=== PATIENT | female | born 1950 | race African-American/Black ===

== ENCOUNTER 2017-04-06 11:38 | Inpatient (IN) | payer MEDICARE ==
--- NOTE | 2017-04-06 12:07 | ER Document Report ---
ED Medical Screen (RME) - General Chief Complaint: Breathing Difficulty Stated Complaint: COLD SYMPTOMS Time Seen by Provider: 04/06/17 11:58 Notes: This 66-year-old female patient comes emergency room complaining of left substernal pleuritic chest pain with shortness of breath and cough. She reports the symptoms started Friday night. She was seen Friday in the emergency room [facility] diagnosed with pneumonia. She reports she is unable to sleep last night and her family brought her here to be seen. She reports she did get a breathing treatment at the emergency room that may have helped a little. She does have a past history of sarcoidosis. There is no swelling or tenderness in the calf muscles. Brief exam shows an irregular tachycardia, dyspnea, somewhat muffled coughing. I have greeted and performed a rapid initial assessment of this patient. A comprehensive ED assessment and evaluation of the patient, analysis of test results and completion of the medical decision making process will be conducted by additional ED providers. TRAVEL OUTSIDE OF THE [place] IN LAST 30 DAYS: No - Related Data Allergies/Adverse Reactions: No Known Allergies Allergy (Verified 04/06/17 11:52) Past Medical History Renal/ Medical History: Denies: Hx Peritoneal Dialysis Physical Exam - Vital signs Vitals: Temp Pulse Resp BP Pulse Ox 99 F 116 H 93 H 135/65 H 40 L 04/06/17 11:52 04/06/17 11:52 04/06/17 11:52 04/06/17 11:52 04/06/17 11:52 Course - Vital Signs Vital signs: Temp Pulse Resp BP Pulse Ox 99 F 116 H 93 H 135/65 H 40 L 04/06/17 11:52 04/06/17 11:52 04/06/17 11:52 04/06/17 11:52 04/06/17 11:52
[2017-04-06] MEDS ORDERED: NORMAL SALINE 1000 ML 500 ML IV ONE (12:16)
--- NOTE | 2017-04-06 12:23 | ER Document Report ---
ED Respiratory Problem - General Chief Complaint: Breathing Difficulty Stated Complaint: COLD SYMPTOMS Time Seen by Provider: 04/06/17 11:58 Mode of Arrival: Ambulatory Information source: Patient, Relative TRAVEL OUTSIDE OF THE [place] IN LAST 30 DAYS: No - HPI Patient complains to provider of: Chest pain, Short of breath Onset: Other - WORSE 4 AM TODAY Duration: Continuous Initiating Event: Other - WAS TOLD @ ANOTHER E.D. THAT S Quality of pain: Dull, Pressure Severity: Moderate Context: denies: DVT, Factor V Leiden, Hx asthma, Hx CHF, Hx COPD, Malignancy, , Recent cardiac event, Recent foreign travel, Recent long distance trvl , Recent immobilization, Recent surgery, Smoker Short of Breath: Moderate Chest pain/discomfort: Left - PARASTERNAL Cough: Nonproductive Sputum amount: None Associated symptoms: Cough, Short of breath. denies: Ankle/leg swelling, Chills , Fever, Hurts to breathe, Sweaty Similar symptoms previously: No Recently seen / treated by doctor: Yes - YESTERDAY, [facility] E[facility], BEGUN ON AZITHRO & CEFDINIR - Related Data Allergies/Adverse Reactions: No Known Allergies Allergy (Verified 04/06/17 15:18) Home Medications: Current Home Medications Glimepiride [Amaryl 4 mg Tablet] 8 mg PO DAILY 04/06/17 [History] Insulin Detemir [Levemir Flextouch] 100 unit SQ DAILY 04/06/17 [History] Losartan/Hydrochlorothiazide [Losartan-Hctz 100-25 mg Tab] 1 each PO DAILY 04/06 [History] Metformin HCl [Metformin HCl ER] 500 mg PO BID 04/06/17 [History] Metoprolol Succinate [Toprol XL 100 mg Tablet] 100 mg PO DAILY 04/06/17 [History ] Rosuvastatin Calcium [Crestor 20 mg Tablet] 20 mg PO DAILY 04/06/17 [History] Trazodone HCl [Desyrel 50 mg Tablet] 100 mg PO QHS 04/06/17 [History] Past Medical History - General Information source: Patient - Social History Smoking Status: Never Smoker Cigarette use (# per day): No Chew tobacco use (# tins/day): No Frequency of alcohol use: None Drug Abuse: None Lives with: Spouse/Significant other Family History: Reviewed & Not Pertinent Patient has suicidal ideation: No Patient has homicidal ideation: No - Past Medical History Cardiac Medical History: Reports: Hx Hypertension Denies: Hx Atrial Fibrillation, Hx DVT, Hx Heart Attack, Hx Pulmonary Embolism Pulmonary Medical History: Reports: Other - SARCOIDOSIS, NO Rx @ [facility] Medical History: Reports: None Neurological Medical History: Reports: None Endocrine Medical History: Reports: Hx Diabetes Mellitus Type 2 Renal/ Medical History: Reports: None. Denies: Hx Peritoneal Dialysis Malignancy Medical History: Reports: None GI Medical History: Reports: None Musculoskeltal Medical History: Reports None Psychiatric Medical History: Reports: None Traumatic Medical History: Reports: None Physical Exam - Vital signs Vitals: Temp Pulse Resp BP Pulse Ox 99 F 116 H 93 H 135/65 H 40 L 04/06/17 11:52 04/06/17 11:52 04/06/17 11:52 04/06/17 11:52 04/06/17 11:52 Course - Vital Signs Vital signs: Temp Pulse Resp BP Pulse Ox 99 F 116 H 29 H 159/94 H 96 04/06/17 11:52 04/06/17 11:52 04/06/17 15:32 04/06/17 15:32 04/06/17 15:32 - Laboratory Result Diagrams: 04/06/17 12:30 04/06/17 12:30 Laboratory results interpreted by me: 04/06/17 04/06/17 04/06/17 12:30 12:30 12:30 MCV 77 L MCH 25.9 L RDW 17.3 H Seg Neutrophils % 84.3 H Lymphocytes % 9.4 L VBG pH Glucose 195 H Direct Bilirubin 0.6 H NT-Pro-B Natriuret Pep 921 H 04/06/17 13:22 MCV MCH RDW Seg Neutrophils % Lymphocytes % VBG pH 7.43 H Glucose Direct Bilirubin NT-Pro-B Natriuret Pep - Diagnostic Test Radiology reviewed: Image reviewed, Reports reviewed - EKG Interpretation by Me EKG shows normal: Sinus rhythm, [place], Intervals, ST-T Waves. abnormal: QRS Complexes - SLOW R WAVE PROGRESSION, PRECORDIAL Rate: Tachycardia - Consults DR. MATTHEWS Time consulted: 14:54 Consulted provider: will come to ER Discharge - Discharge Clinical Impression: Hypoxemia, Pleuritic chest pain Pneumonia Qualifiers: Pneumonia type: due to unspecified organism Laterality: left Lung location: lower lobe of lung Qualified Code(s): J18.1 - Lobar pneumonia, unspecified organism Atrial flutter Qualifiers: Atrial flutter type: typical Qualified Code(s): I48.3 - Typical atrial flutter Condition: Fair Disposition: ADMITTED INPATIENT Admitting Provider: Hospitalist Unit Admitted: [facility]
[2017-04-06 12:55] LABS: ABSOLUTE EOSINOPHILS # (AUTO) 0.1 10^3/uL (0.0-0.6); ABSOLUTE LYMPHOCYTES (AUTO) 0.8 10^3/uL (0.5-4.7); ABSOLUTE MONOCYTES (AUTO) 0.4 10^3/uL (0.1-1.4); BASOPHILS % (AUTO) 0.5 % (0-2); EOSINOPHILS % (AUTO) 1.2 % (0-6); HEMOGLOBIN 12.4 g/dL (12.0-15.5); HGB HCT DIFFERENCE 0.2; LYMPHOCYTES % (AUTO) 9.4 % (13-45); MEAN CORPUSCULAR HEMOGLOBIN 25.9 pg (27.0-33.4); MEAN CORPUSCULAR HGB CONC 33.5 g/dL (32.0-36.0); MEAN CORPUSCULAR VOLUME 77 fl (80-97); MONOCYTES % (AUTO) 4.6 % (3-13); RED BLOOD COUNT 4.79 10^6/uL (3.72-5.28); RED CELL DISTRIBUTION WIDTH 17.3 % (11.5-14.0); SEGMENTED NEUTROPHILS % (AUTO) 84.3 % (42-78); WHITE BLOOD COUNT 8.3 10^3/uL (4.0-10.5)
--- NOTE | 2017-04-06 13:03 | RADIOLOGY REPORT (SQ) ---
EXAM DESCRIPTION: CHEST SINGLE VIEW COMPLETED DATE/TIME: 04/06/2017 12:41 pm REASON FOR STUDY: pleuritic pain, tachycardia, SOB, cough COMPARISON: None. EXAM PARAMETERS: NUMBER OF VIEWS: One view. TECHNIQUE: Single frontal radiographic view of the chest acquired. RADIATION DOSE: NA LIMITATIONS: None. FINDINGS: LUNGS AND PLEURA: Airspace disease in the left lower lung silhouetting the heart border an d diaphragm. MEDIASTINUM AND HILAR STRUCTURES: No masses. Contour normal. HEART AND VASCULAR STRUCTURES: Cardiomegaly. BONES: No acute findings. HARDWARE: None in the chest. OTHER: No other significant finding. IMPRESSION: Left lower lobe pneumonia. TECHNICAL DOCUMENTATION: JOB ID: [id number] [employer]- All Rights Reserved
[2017-04-06 13:18] LABS: ALANINE AMINOTRANSFERASE 15 U/L (9-52); ALBUMIN 3.5 g/dL (3.5-5.0); ALKALINE PHOSPHATASE 80 U/L (38-126); ANION GAP 14 (5-19); ASPARTATE AMINO TRANSFERASE 29 U/L (14-36); BILIRUBIN,DIRECT 0.6 mg/dL (0.0-0.4); BLOOD UREA NITROGEN 14 mg/dL (7-20); CALCIUM 8.7 mg/dL (8.4-10.2); CARBON DIOXIDE 25 mmol/L (22-30); CHLORIDE 103 mmol/L (98-107); CREATINE KINASE 75 U/L (30-135); GLUCOSE 195 mg/dL (75-110); POTASSIUM 4.1 mmol/L (3.6-5.0); SODIUM 141.5 mmol/L (137-145); TOTAL PROTEIN 7.7 g/dL (6.3-8.2)
[2017-04-06 13:27] LABS: TROPONIN I 0.031 ng/mL
[2017-04-06 13:50] LABS: VENOUS BLOOD BASE EXCESS 0.2 mmol/L; VENOUS BLOOD HCO3 24.1 mmol/L (20-32); VENOUS BLOOD PCO2 37.2 mmHg (35-63); VENOUS BLOOD PH 7.43 (7.30-7.42)
--- NOTE | 2017-04-06 14:01 | EKG REPORT ---
SEVERITY:- BORDERLINE ECG - SINUS TACHYCARDIA CONSIDER ANTERIOR INFARCT : Confirmed by: Venkat Elliott MD 06-Apr-2017 14:00:42
--- NOTE | 2017-04-06 14:51 | RADIOLOGY REPORT (SQ) ---
EXAM DESCRIPTION: CTA CHEST COMPLETED DATE/TIME: 04/06/2017 2:24 pm REASON FOR STUDY: DYSPNEA, CHEST PAIN, HYPOXEMIA COMPARISON: None. TECHNIQUE: CT scan of the chest performed using helical scanning technique with dynamic intravenous contrast injection. Images reviewed with lung, soft tissue and bone windows. Reconstructed coronal and sagittal MPR images reviewed. Additional 3 dimensional post-processing performed to develop Maximal Intensity Projection images (VT P). All images stored on PACS. All CT scanners at this facility use dose modulation, iterative reconstruction, and/or weight based d osing when appropriate to reduce radiation dose to as low as reasonably achievable (ALARA). [facility]: Dose Right [facility]: CareDose [facility]: Dose Right [facility]: Teradose 4D [facility]: Possibility Space CONTRAST TYPE AND DOSE: contrast/concentration: Isovue 370.00 mg/ml; Total Contrast Delivered: 74.0 ml; Total Saline Delivered: 95.0 ml Contrast bolus optimized for the pulmonary arteries. Not diagnostic for the aorta. RENAL FUNCTION: BUN 14 creatinine 0.8 RADIATION DOSE: Up-to-date CT equipment and radiation dose reduction techniques were employed. CTDIv ol: 23.2 - 25.4 mGy. DLP: 831 mGy-cm. . LIMITATIONS: None. FINDINGS: LUNGS AND PLEURA: Segmental airspace disease with near collapse of the left lower lobe. S mall left pleural effusion. There is a background of chronic interstitial lung disease. AORTA AND GREAT VESSELS: Reflux of contrast in the azygos vein likely related to heart failure or tri cuspid insufficiency. HEART: No pericardial effusion. Cardiomegaly. Epicardial pacing leads. PULMONARY ARTERIES: No emboli visualized in the main pulmonary arteries or the segmental branches. HILAR AND MEDIASTINAL STRUCTURES: Anatomic variant superior pericardial recess. HARDWARE: None in the chest. UPPER ABDOMEN: No significant findings. Limited exam. THYROID AND OTHER SOFT TISSUES: No masses. No adenopathy. BONES: No acute or significant finding. 3D MIPS: Confirm above findings. OTHER: No other significant finding. IMPRESSION: 1. No evidence of PE. 2. Pneumonia or asymmetric pulmonary edema. COMMENT: Quality ID # [id number]: Final reports with documentation of one or more dose reduction techniques (e.g., Automated exposure control, adjustment of the mA and/or kV according to patient size, use of iterative reconstruction technique) TECHNICAL DOCUMENTATION: JOB ID: [id number]- All Rights Reserved
[2017-04-06] MEDS ORDERED: DILTIAZEM HCL INJ 25 MG/5 ML VIAL IV ONE (14:57)
[2017-04-06] MEDS ORDERED: KETOROLAC TROMETHAMINE INJ/PF 30 MG/1 ML SDV IV ONE (14:58)
--- NOTE | 2017-04-06 15:54 | PDOC H&P ---
History of Present Illness Admission Date/PCP: BRIAN HOLCOMB MD Patient complains of: Difficulty breathing that started on Friday. History of Present Illness: ANTHONY MARINA is a 66 year old female who began to notice shortness of breath on Friday. The patient states that the history actually began on Friday. On Friday, the patient went to see Dr. Audelia blakely. Dr. 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 She got the flu shot. That evening she started to develop pains in her hands and arms. She described the pain as tightness and she had difficulty making fists. The right hand was worse than the left hand. The lower extremities were not affected. The shortness of breath began on Friday. By Friday, the patient had so much difficulty breathing that she went to the emergency department in [facility]. She was diagnosed with pneumonia and sent home on azithromycin. Her symptoms became worse. Her daughter went to check on her today and was quite concerned and brought her back to the emergency department. She has not had any fevers, chills or sweats. She does have a dry, hacking cough. She denies any purulent sputum production and she denies hemoptysis. She does have substernal chest pressure. This is intermittent. It is worse with moving and worse with a deep breath. Her breathing is worse when lying down. She does describe symptoms of orthopnea and paroxysmal nocturnal dyspnea. She has not gained weight recently. In fact, she has lost 15 pounds by recently being started on Invokana. This medication led to a very bad memory and difficulty with eating. She has not noticed any lower extremity edema. She has not noted any increased abdominal girth. When the patient came to the emergency department she was noted to be in atrial flutter. She is going in and out of atrial flutter and sinus tachycardia. Past Medical History Cardiac Medical History: Reports: Hyperlipidema, Hypertension Pulmonary Medical History: Reports: Sleep Apnea, Other - SARCOIDOSIS, NO Rx @ [facility] Medical History: Reports: None Neurological Medical History: Reports: None Endocrine Medical History: Reports: None, Diabetes Mellitus Type 2 Renal/ Medical History: Reports: None Malignancy Medical History: Reports: None GI Medical History: Reports: None Musculoskeltal Medical History: Reports: None Psychiatric Medical History: Reports: None Traumatic Medical History: Reports: None Past Surgical History Past Surgical History: Reports: Hysterectomy, Tubal Ligation Social History Lives with: Spouse/Significant other Smoking Status: Never Smoker Frequency of Alcohol Use: None Hx Recreational Drug Use: No Drugs: None Hx Prescription Drug Abuse: No - Advance Directive Resuscitation Status: Full Code Surrogate healthcare decision maker:: Patient identifies her , Darshan marina as her decision maker. His phone number is area code ; alternatively he can be reached at area code . Family History Family History: Reviewed & Not Pertinent, DM, Hypertension Parental Family History Reviewed: Yes - Mom had multiple strokes Children Family History Reviewed: Yes Sibling(s) Family History Reviewed.: Yes Medication/Allergy Allergies/Adverse Reactions: No Known Allergies Allergy (Verified 04/06/17 15:18) Review of Systems Constitutional: PRESENT: as per HPI Eyes: ABSENT: visual disturbances Ears: ABSENT: hearing changes Nose, Mouth, and Throat: ABSENT: as per HPI, headache(s), mouth pain, sore throat, vertigo, other Breasts: ABSENT: as per HPI, other Cardiovascular: PRESENT: as per HPI Respiratory: PRESENT: as per HPI Gastrointestinal: ABSENT: as per HPI, abdominal pain, bloating, coffee ground emesis, constipation, diarrhea, dysphagia, heartburn, hematemesis, hematochezia , melena, nausea, vomiting, other Genitourinary: ABSENT: as per HPI, difficulty urinating, dysuria, hematuria, nocturia, other Musculoskeletal: PRESENT: as per HPI Integumentary: ABSENT: as per HPI, diaphoresis, erythema, lesions, pruritus, rash, wounds, other Neurological: ABSENT: as per HPI, abnormal gait, abnormal movements, abnormal speech, confusion, convulsions, dizziness, focal weakness, frequent falls, lack of coordination, memory loss, numbness, paresthesias, restless legs, syncope, tingling, tremor(s), vertigo, weakness, other Psychiatric: ABSENT: as per HPI, anxiety, depression, hallucinations, homidical ideation, suicidal ideation, other Endocrine: ABSENT: as per HPI, cold intolerance, flushing, heat intolerance, menstrual abnormalities, polydipsia, polyphagia, polyuria, other Hematologic/Lymphatic: ABSENT: as per HPI, easy bleeding, easy bruising, lymphadenopathy, other Allergic/Immunologic: ABSENT: as per HPI, seasonal rhinorrhea, other Physical Exam Vital Signs: Temp Pulse Resp BP Pulse Ox 99 F 116 H 28 H 160/76 H 96 04/06/17 11:52 04/06/17 11:52 04/06/17 15:29 04/06/17 15:01 04/06/17 15:29 Intake & Output 04/05/17 04/06/17 04/07/17 06:59 06:59 06:59 Weight 84.6 kg Additional comments: The patient was lying in bed at 30. She was on a partial nonrebreather. She was able to converse easily. She appeared to be in mild respiratory distress but not severe respiratory distress. Her facial appearance was normal. She does not have upper teeth but she does have bottom teeth. She has mild dental caries. Her lips are normal. Her mucous membranes are moist. Her thyroid is nonpalpable. Her trachea is midline. She does have JVD present. The patient' s lungs show diminished breath sounds both anteriorly and posteriorly. She does have rales throughout her lungs but they are not Velcro like. Breath sounds are diminished in the bases bilaterally. The cardiac exam is noted to be irregularly irregular. However, I do not appreciate any murmurs, gallops or rubs. The abdomen is soft and flat. Bowel sounds are present. There is no guarding or rebound noted. There are no hernias or masses present. I do not detect hepatosplenomegaly. The lower extremities are warm to touch. The patient does not have any pitting edema present. Dorsalis pedis pulses are brisk and 2+. The skin is warm dry and intact without lesions or rashes. Patient follows all commands neurologically and is able to move all 4 extremities. Results Laboratory Results: 04/06/17 12:30 04/06/17 12:30 04/06/17 04/06/17 04/06/17 12:30 12:30 12:30 WBC 8.3 RBC 4.79 Hgb 12.4 Hct 37.0 MCV 77 L MCH 25.9 L MCHC 33.5 RDW 17.3 H Plt Count 347 Seg Neutrophils % 84.3 H Lymphocytes % 9.4 L Monocytes % 4.6 Eosinophils % 1.2 Basophils % 0.5 Absolute Neutrophils 7.0 Absolute Lymphocytes 0.8 Absolute Monocytes 0.4 Absolute Eosinophils 0.1 Absolute Basophils 0.0 VBG pH VBG pCO2 VBG HCO3 VBG Base Excess Sodium 141.5 Potassium 4.1 Chloride 103 Carbon Dioxide 25 Anion Gap 14 BUN 14 Creatinine 0.80 Est GFR ( Amer) > 60 Est GFR (Non-Af Amer) > 60 Glucose 195 H Lactic Acid 1.7 Calcium 8.7 Total Bilirubin 1.0 AST 29 ALT 15 Alkaline Phosphatase 80 Total Protein 7.7 Albumin 3.5 04/06/17 13:22 WBC RBC Hgb Hct MCV MCH MCHC RDW Plt Count Seg Neutrophils % Lymphocytes % Monocytes % Eosinophils % Basophils % Absolute Neutrophils Absolute Lymphocytes Absolute Monocytes Absolute Eosinophils Absolute Basophils VBG pH 7.43 H VBG pCO2 37.2 VBG HCO3 24.1 VBG Base Excess 0.2 Sodium Potassium Chloride Carbon Dioxide Anion Gap BUN Creatinine Est GFR ( Amer) Est GFR (Non-Af Amer) Glucose Lactic Acid Calcium Total Bilirubin AST ALT Alkaline Phosphatase Total Protein Albumin 04/06/17 04/06/17 12:30 12:30 Creatine Kinase 75 Troponin I 0.031 NT-Pro-B Natriuret Pep 921 H Impressions: Chest X-Ray 04/06/17 12:04 IMPRESSION: Left lower lobe pneumonia. Chest/Abdomen CTA 04/06/17 13:26 IMPRESSION: 1. No evidence of PE. 2. Pneumonia or asymmetric pulmonary edema. Assessment & Plan - Diagnosis (1) Acute respiratory failure with hypoxia Is this a current diagnosis for this admission?: Yes Plan: The patient will be admitted to an intermediate level bed. Supplemental oxygen will be continued. (2) Collapse of left lung Is this a current diagnosis for this admission?: Yes Plan: The collapse of the left lung may be secondary to the pleural effusion. Alternatively, the pleural effusion could be secondary to the collapsed lung. This could be concerning for an endobronchial lesion. Pulmonary consultation is warranted. Respiratory therapy will begin chest percussion. (3) Pleural effusion Is this a current diagnosis for this admission?: Yes Plan: The patient likely has a large shunt secondary to the collapsed left lower lobe. Again, she will need pulmonary toilet. Bronchoscopy and thoracentesis may be required. (4) Diabetes Is this a current diagnosis for this admission?: Yes Plan: The patient is not able to tell me what all of her medications are. However, she does endorse that she takes Levemir 80 units at 4 PM. I will continue her basal insulin and write her for a sliding scale. Certainly, we will avoid agents like metformin for now. (5) Elevated troponin level Is this a current diagnosis for this admission?: Yes Plan: I will continue to trend troponins. I will also order an echocardiogram. However, if the troponins continue to trend upward this is likely a type II myocardial infarction secondary to supply demand mismatch. (6) Atrial flutter Qualifiers: Atrial flutter type: typical Qualified Code(s): I48.3 - Typical atrial flutter Is this a current diagnosis for this admission?: Yes Plan: The atrial flutter is likely secondary to the patient's respiratory distress. At this point time since the patient may warrant invasive procedures I will not fully anticoagulate the patient. However, I will continue aspirin. She is currently being rate controlled with Cardizem. We are still waiting for her outpatient medication record. Thyroid studies will need to be ordered. (7) Pneumonia Qualifiers: Pneumonia type: due to unspecified organism Laterality: left Lung location: lower lobe of lung Qualified Code(s): J18.1 - Lobar pneumonia, unspecified organism Is this a current diagnosis for this admission?: Yes Plan: The patient does not give a clinical history compatible with pneumonia, however , her presentation could be atypical secondary to her diabetes. Until we have more clarification I will begin therapy for community-acquired pneumonia targeting gram-positive organisms and atypical organisms. - Time Time Spent: 50 to 70 Minutes - Inpatient Certification Medical Necessity: Failure to Improve With Outpatient Therapy, Significant Comorbidiites Make Outpatient Treatment Too Risky, Need Close Monitoring Due to Risk of Patient Decompensation, Need For Continuous Telemetry Monitoring, Need for IV Antibiotics
[2017-04-06] MEDS ORDERED: ASPIRIN 81 MG TABLET, CHEWABLE PO ONE (16:05)
[2017-04-06] MEDS ORDERED: AZITHROMYCIN INJ 500 MG VIAL IV ONE (16:13)
[2017-04-06] MEDS ORDERED: ALBUTEROL SULFATE 0.083% NEB 2.5 MG/3 ML AMPUL NEB PRN (16:15)
[2017-04-06] MEDS ORDERED: DEXTROSE 50%-WATER 25 GM/50 ML DISP.SYRIN IV PRN ×2 (18:07)
[2017-04-06] MEDS ORDERED: DEXTROSE 40% GEL 15 GM TUBE PO PRN ×2 (18:07)
[2017-04-06] MEDS ORDERED: GLUCAGON,HUMAN RECOMB 1 MG INJ IM PRN (18:07)
[2017-04-06] MEDS ORDERED: INSULIN LISPRO 100 UNIT/ML 3 ML VIAL SUBCUT PRN (18:07)
--- NOTE | 2017-04-06 18:25 | PDOC CONSULTATION ---
Consultation Consult Date: 04/06/17 Attending physician:: NAHID MATTHEWS Consult reason:: Abnormal troponin I elevation History of Present Illness Admission Date/PCP: 04/06/17 17:19 BRIAN HOLCOMB MD Patient complains of: Shortness of breath History of Present Illness: ANTHONY MARINA is a 66 year old female who began to notice shortness of breath on Friday. The patient states that the history actually began on Friday. On Friday, the patient went to see Dr. Audelia blakely. Dr. 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 She got the flu shot. That evening she started to develop pains in her hands and arms. She described the pain as tightness and she had difficulty making fists. The right hand was worse than the left hand. The lower extremities were not affected. The shortness of breath began on Friday. By Friday, the patient had so much difficulty breathing that she went to the emergency department in [facility]. She was diagnosed with pneumonia and sent home on azithromycin. Her symptoms became worse. Her daughter went to check on her today and was quite concerned and brought her back to the emergency department. She has not had any fevers, chills or sweats. She does have a dry, hacking cough. She denies any purulent sputum production and she denies hemoptysis. She does have substernal chest pressure. This is intermittent. It is worse with moving and worse with a deep breath. Her breathing is worse when lying down. She does describe symptoms of orthopnea and paroxysmal nocturnal dyspnea. She has not gained weight recently. In fact, she has lost 15 pounds by recently being started on Invokana. This medication led to a very bad memory and difficulty with eating. She has not noticed any lower extremity edema. She has not noted any increased abdominal girth. When the patient came to the emergency department she was noted to be in atrial flutter. She is going in and out of atrial flutter and sinus tachycardia. Patient denied any history of prior heart problems such as congestive heart failure, prior myocardial infarction, strokes or mini strokes. Patient has however noted some memory problem. Patient CTA reviewed. It seems she has a pleural peritoneal catheter. She also has a large azygos vein. 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 Patient however denied ever having any such procedure. Patient's telemetry strips were reviewed. She was noted to go back and forth into atrial flutter and sinus tachycardia. Currently when I saw the patient she had mild sinus tachycardia with the heart rate in 110-120 range. Past Medical History Cardiac Medical History: Reports: None, Hyperlipidema, Hypertension Denies: Atrial Fibrillation, DVT, Myocardial Infarction, Pulmonary Embolism Pulmonary Medical History: Reports: Sleep Apnea, Other - SARCOIDOSIS, NO Rx @ [facility] Medical History: Reports: None Neurological Medical History: Reports: None Endocrine Medical History: Reports: None, Diabetes Mellitus Type 2 Renal/ Medical History: Reports: None Malignancy Medical History: Reports: None GI Medical History: Reports: None Musculoskeltal Medical History: Reports: None Psychiatric Medical History: Reports: None Traumatic Medical History: Reports: None Past Surgical History Past Surgical History: Reports: Hysterectomy, Tubal Ligation Social History Information Source: Patient Lives with: Spouse/Significant other Smoking Status: Never Smoker Frequency of Alcohol Use: None Hx Recreational Drug Use: No Drugs: None Hx Prescription Drug Abuse: No - Advance Directive Resuscitation Status: Full Code Surrogate healthcare decision maker:: Patient's Family History Family History: Hypertension Parental Family History Reviewed: Yes Children Family History Reviewed: Yes Sibling(s) Family History Reviewed.: Yes Medication/Allergy Home Medications: Glimepiride [Amaryl 4 mg Tablet] 8 mg PO DAILY 04/06/17 Insulin Detemir [Levemir Flextouch] 100 unit SQ DAILY 04/06/17 Losartan/Hydrochlorothiazide [Losartan-Hctz 100-25 mg Tab] 1 each PO DAILY 04/06 Metformin HCl [Metformin HCl ER] 500 mg PO BID 04/06/17 Metoprolol Succinate [Toprol XL 100 mg Tablet] 100 mg PO DAILY 04/06/17 Rosuvastatin Calcium [Crestor 20 mg Tablet] 20 mg PO DAILY 04/06/17 Trazodone HCl [Desyrel 50 mg Tablet] 100 mg PO QHS 04/06/17 Allergies/Adverse Reactions: No Known Allergies Allergy (Verified 04/06/17 15:18) Review of Systems Review of Systems: Please see history of present illness and past medical history as wall. Constitutional: No fever or chills reported. Head : No recent chronic headaches, recent head injury. Eyes: No recent eye pain, diplopia, redness, discharge, acute visual changes. Ears: No recent chronic ear pain, acute hearing loss, ear discharge. Oral cavity: No recent ulcerations, bleeding, oral cavity discomfort. Neck: No recent acute neck pain reported. Hematologic: No recent easy bruising or bleeding or hematologic malignancy reported. Lymphatic: No recent lymphatic malignancy, chronic lymphadenopathy reported yet Cardiovascular system review: See history of present illness. Intermittent mild pedal edema and chest pain as discussed above Respiratory system review: Patient has noted some chronic cough recently but no hemoptysis, blood clots in the lungs reported. Shortness of breath on exertion Gastrointestinal system review: Negative for any recent acute or chronic abdominal pain, hematemesis, melena, recent change in bowel habits. Genitourinary system review: No recent acute or chronic hematuria, flank pain, UTI etc. reported. Skin system review: Negative for any recent abnormal bruising, no rash, no pruritus reported. Neurologic: No prior history of strokes, mini strokes, seizure disorder. Psychologic: No history of major psychosis or major depression reported. Musculoskeletal: Minor aches and pains reported. No acute joint swelling reported. Endocrine: No recent polyuria, polydipsia, recent heat or cold intolerance. Physical Exam Vital Signs: Temp Pulse Resp BP Pulse Ox 99 F 116 H 29 H 159/94 H 96 04/06/17 11:52 04/06/17 11:52 04/06/17 15:32 04/06/17 15:32 04/06/17 15:32 Exam: GENERAL: well-nourished and in no acute distress. Alert and oriented x3 HEAD: Atraumatic, normocephalic. EYES: Pupils equal round and reactive to light, extraocular movements intact, sclera anicteric, conjunctiva are normal. ENT: TMs normal, nares patent, oropharynx clear without exudates. Moist mucous membranes. No oral ulcerations or bleeding gums noted NECK: supple without lymphadenopathy. Trachea is central. No cervical or axillary lymphadenopathy noted. Carotids are 2+, JVD WNL LUNGS: Respiration seems nonlabored, no significant accessory muscle action noted. Bibasilar fine crackles noted. No wheezes rales or rhonchi noted. Dullness noted both bases left more than right.. CHEST: Palpation of the chest wall shows no significant chest wall tenderness. No other significant abnormalities noted. HEART: [place] [employer]GER, No PSH, 1/6 DIYA aortic area, 1/6 hameed systolic murmur mitral area, no rubs, no gallops. ABDOMEN: Soft, no significant tenderness appreciated, normoactive bowel sounds. No guarding, no rebound. No rigidity noted . No masses appreciated. EXTREMITIES: Pedal pulses are 1-2+, no calf tenderness noted. No clubbing or cyanosis.trace to 1+ pedal edema noted NEUROLOGICAL: Focused neurological exam showed no significant neurologic deficit. Normal speech, no focal weakness appreciated. PSYCH: Normal mood, normal affect. Judgment and insight within normal limits. SKIN: No significant ecchymosis, rash, ulcerations or signs of pruritus noted. MUSCULOSKELETAL EXAM: No significant joint swelling noted. Results EKG Comments: Sinus tachycardia, no acute ST-T wave changes noted Impressions: Chest X-Ray 04/06/17 12:04 IMPRESSION: Left lower lobe pneumonia. Chest/Abdomen CTA 04/06/17 13:26 IMPRESSION: 1. No evidence of PE. 2. Pneumonia or asymmetric pulmonary edema. Assessment & Plan - Diagnosis (1) Elevated troponin level Is this a current diagnosis for this admission?: Yes (2) Congestive heart failure (CHF) Qualifiers: Congestive heart failure type: unspecified congestive heart failure type Congestive heart failure chronicity: acute on chronic Qualified Code(s): I50.9 - Heart failure, unspecified Is this a current diagnosis for this admission?: Yes (3) Acute respiratory failure with hypoxia Is this a current diagnosis for this admission?: Yes (4) Atrial flutter Qualifiers: Atrial flutter type: typical Qualified Code(s): I48.3 - Typical atrial flutter Is this a current diagnosis for this admission?: Yes (5) Collapse of left lung Is this a current diagnosis for this admission?: Yes (6) Diabetes Qualifiers: Diabetes mellitus type: type 2 Is this a current diagnosis for this admission?: Yes (7) Hypoxemia Is this a current diagnosis for this admission?: Yes (8) Pleural effusion Is this a current diagnosis for this admission?: Yes (9) Pleuritic chest pain Is this a current diagnosis for this admission?: Yes - Notes Notes: Elevated troponin I: Patient just has minimal abnormality of troponin I which is probably within normal range at her age. No further evaluation indicated for this amount of rise of troponin unless it goes up further. Patient does have atrial flutter fibrillation and also sinus tachycardia as well as hypoxemia which can result in some leakage of troponin I. Congestive heart failure: Most likely precipitated by atrial flutter in setting of diastolic dysfunction. Patient may have valvular abnormalities. Have ordered a 2D echo. Recommend diuretics at this point. Atrial flutter paroxysmal: Possibly related to underlying pulmonary problem. Patient seems to have significant abnormality on her CT scan. May consider Lovenox/heparin therapy with close monitoring of blood count to make sure patient does not have any internal bleed. Acute respiratory failure: Most likely related to pulmonary pathology. Patient probably has some element of CHF secondary to atrial flutter fibrillation on top of diastolic dysfunction. Recommend cautious trial of diuretics. Collapse of the left lower lobe.: Agree with pulmonary involvement with bronchoscopy etc. Diabetes: Currently under satisfactory management. Hypoxemia: Continue with oxygen supplementation. Pleuritic chest pain: Probably related to pulmonary pathology. At this point, will order a 2D echo, repeat EKGs. Dr. Garcia similar to cover tomorrow. My review of CT scan of the chest suggest that patient may have superior vena cava obstruction. Possible pleural peritoneal shunt. Dr. Matthews has placed a call for the radiologist to review the CT scan. Overall prognosis is guarded. - Time Time Spent: 50 to 70 Minutes - CODE STATUS was discussed, patient remains full code. Surrogate decision-maker patient's . Multiple medical problems were addressed. More than 50% of the time spent coordinating care, discussing management plans with involved caregivers. Management plans discussed with involved personnels. Medical decision making was of moderate to high complexity , patient's has multiple comorbidities. Medications reviewed and adjusted accordingly: Yes
[2017-04-06] MEDS ORDERED: HEPARIN SOD (PORCINE) 1,000 UNIT/ML 10 ML VIAL IV ONE (18:30)
[2017-04-06] MEDS ORDERED: HEPARIN SODIUM,PORCINE/D5W 25,000 UNIT/250 ML RTUINJ IV PRN (18:30)
[2017-04-06] MEDS ORDERED: FUROSEMIDE INJ/PF 20 MG/2 ML SDV IV ONE (18:49)
[2017-04-06] MEDS: CEFTRIAXONE 1 GM/D5W RTU 1 GM/50 ML RTUPB IV SCH (19:10)
[2017-04-06 19:43] LABS: ABSOLUTE EOSINOPHILS # (AUTO) 0.1 10^3/uL (0.0-0.6); ABSOLUTE LYMPHOCYTES (AUTO) 0.8 10^3/uL (0.5-4.7); ABSOLUTE MONOCYTES (AUTO) 0.5 10^3/uL (0.1-1.4); ABSOLUTE NEUT (AUTO) 7.2 10^3/uL (1.7-8.2); BASOPHILS % (AUTO) 0.4 % (0-2); EOSINOPHILS % (AUTO) 0.9 % (0-6); HEMATOCRIT 33.2 % (36.0-47.0); HEMOGLOBIN 11.3 g/dL (12.0-15.5); HGB HCT DIFFERENCE 0.7; LYMPHOCYTES % (AUTO) 9.5 % (13-45); MEAN CORPUSCULAR HEMOGLOBIN 25.9 pg (27.0-33.4); MEAN CORPUSCULAR HGB CONC 33.9 g/dL (32.0-36.0); MEAN CORPUSCULAR VOLUME 76 fl (80-97); MONOCYTES % (AUTO) 5.5 % (3-13); RED BLOOD COUNT 4.35 10^6/uL (3.72-5.28); RED CELL DISTRIBUTION WIDTH 16.6 % (11.5-14.0); SEGMENTED NEUTROPHILS % (AUTO) 83.7 % (42-78); WHITE BLOOD COUNT 8.5 10^3/uL (4.0-10.5)
[2017-04-06 19:52] LABS: PROTHROMBIN TIME 15.8 SEC (11.4-15.4)
[2017-04-06 19:53] LABS: PARTIAL THROMBOPLASTIN TIME 33.6 SEC (23.5-35.8)
[2017-04-06 20:19] LABS: CREATINE KINASE MB 0.42 ng/mL (<4.55); TROPONIN I 0.071 ng/mL
[2017-04-06] MEDS ORDERED: HEPARIN SOD (PORCINE) 1,000 UNIT/ML 10 ML VIAL IV PRN (21:31)
[2017-04-06] MEDS ORDERED: INSULIN DETEMIR 100 UNIT/ML 3 ML PEN SUBCUT ONE (21:34)
[2017-04-06] MEDS ORDERED: POTASSIUM CHLORIDE 10 MEQ TABLET.SA PO SCH (22:00)
[2017-04-06] MEDS ORDERED: IPRATROPIUM/ALBUTEROL 0.5-2.5 MG/3 ML AMPUL NEB SCH (22:00)
[2017-04-06] MEDS ORDERED: METOPROLOL TARTRATE 25 MG TABLET PO SCH (22:00)
[2017-04-06] MEDS: INSULIN DETEMIR 100 UNIT/ML 3 ML PEN SUBCUT SCH (22:30)
[2017-04-06] MEDS: TRAZODONE HCL 50 MG TABLET PO SCH (22:30)
[2017-04-06] MEDS: ATORVASTATIN CALCIUM 20 MG TABLET PO SCH (22:31)
[2017-04-06] MEDS: FAMOTIDINE 20 MG TABLET PO SCH (22:32)
[2017-04-06] MEDS: METOPROLOL TARTRATE 50 MG TABLET PO SCH (22:32)
[2017-04-07 02:20] LABS: CREATINE KINASE MB 0.31 ng/mL (<4.55); TROPONIN I 0.052 ng/mL
[2017-04-07] MEDS ORDERED: NORMAL SALINE 1000 ML 1,000 ML IV ONE (02:30)
[2017-04-07 06:38] LABS: HEMATOCRIT 30.9 % (36.0-47.0); HEMOGLOBIN 10.4 g/dL (12.0-15.5); HGB HCT DIFFERENCE 0.3; MEAN CORPUSCULAR HEMOGLOBIN 25.7 pg (27.0-33.4); MEAN CORPUSCULAR HGB CONC 33.6 g/dL (32.0-36.0); MEAN CORPUSCULAR VOLUME 76 fl (80-97); RED BLOOD COUNT 4.04 10^6/uL (3.72-5.28); RED CELL DISTRIBUTION WIDTH 17.1 % (11.5-14.0); WHITE BLOOD COUNT 8.4 10^3/uL (4.0-10.5)
[2017-04-07 06:54] LABS: ANION GAP 10 (5-19); BLOOD UREA NITROGEN 16 mg/dL (7-20); CALCIUM 8.3 mg/dL (8.4-10.2); CARBON DIOXIDE 23 mmol/L (22-30); CHLORIDE 108 mmol/L (98-107); CHOLESTEROL 137.08 mg/dL (0-200); CREATININE RESULT 0.99 mg/dL (0.52-1.25); Direct HDL 30 mg/dL (>40); GLUCOSE 114 mg/dL (75-110); MAGNESIUM 2.2 mg/dL (1.6-2.3); PHOSPHORUS 3.9 mg/dL (2.5-4.5); POTASSIUM 4.7 mmol/L (3.6-5.0); SODIUM 140.6 mmol/L (137-145); TRIGLYCERIDES 77 mg/dL (<150)
[2017-04-07 06:55] LABS: PROTHROMBIN TIME 15.7 SEC (11.4-15.4)
[2017-04-07 06:56] LABS: PARTIAL THROMBOPLASTIN TIME 60.3 SEC (23.5-35.8)
[2017-04-07 07:04] LABS: DIRECT LDL 84 mg/dL (<100)
[2017-04-07 07:09] LABS: FREE T3 3.33 pg/mL (2.77-5.27)
[2017-04-07 07:22] LABS: THYROID STIMULATING HORMONE 1.39 uIU/mL (0.47-4.68)
[2017-04-07] MEDS: IPRATROPIUM/ALBUTEROL 0.5-2.5 MG/3 ML AMPUL NEB SCH ×3 (08:14→23:45)
[2017-04-07 09:09] LABS: CREATINE KINASE MB 0.24 ng/mL (<4.55); TROPONIN I 0.102 ng/mL
[2017-04-07] MEDS: DOCUSATE SODIUM 100 MG CAPSULE PO SCH (09:55)
--- NOTE | 2017-04-07 09:59 | EKG REPORT ---
SEVERITY:- ABNORMAL ECG - SINUS RHYTHM FIRST DEGREE AV BLOCK : Confirmed by: Markus Jiménez 07-Apr-2017 09:57:32
--- NOTE | 2017-04-07 09:59 | EKG REPORT ---
SEVERITY:- ABNORMAL ECG - SINUS RHYTHM FIRST DEGREE AV BLOCK : Confirmed by: Markus Jiménez 07-Apr-2017 09:57:46
[2017-04-07] MEDS ORDERED: ENOXAPARIN SODIUM INJ 40 MG/0.4 ML DISP.SYRIN SUBCUT SCH (10:00)
[2017-04-07] MEDS: FUROSEMIDE INJ/PF 40 MG/4 ML SDV IV SCH ×2 (10:05→20:53)
[2017-04-07] MEDS: METOPROLOL TARTRATE 50 MG TABLET PO SCH ×2 (10:05→20:52)
[2017-04-07] MEDS: ASPIRIN 325 MG TABLET, ENT COATED PO SCH (10:06)
[2017-04-07] MEDS: FAMOTIDINE 20 MG TABLET PO SCH ×2 (10:06→20:53)
[2017-04-07] MEDS: AZITHROMYCIN 500 MG in DEXTROSE 5%-WATER 250 ML IV SCH (10:06)
--- NOTE | 2017-04-07 12:34 | PDOC PROGRESS REPORT ---
Subjective Progress Note for:: 04/07/17 Subjective:: The patient is a 66-year-old female who normally enjoys fairly good health. Recently, her health has been compromised due to complications with diabetes therapy. When she started Invokana she had an extremely poor appetite. She lost 15 pounds and developed significant memory impairment. Since stopping the Invokana her memory has almost normalized. During this week the patient received the flu shot on Friday. She then started to develop aches and pains in the upper extremities. She felt ill. She did not, however, have any fevers. By Friday the patient started to develop shortness of breath and a paroxysmal cough. Her symptoms progressed and she went to the hospital in [facility] on Friday. She was diagnosed with pneumonia and sent home on azithromycin. The patient continued to get worse. She came to the emergency department last night and was found to be hypoxic. She was in atrial flutter intermittently with sinus tachycardia. X-rays demonstrate partial left lower lobe collapse with an associated pleural effusion. Patient feels significantly improved overnight. She is now able to lie flat with much less shortness of breath. Also, her cough is nearly resolved this morning. Physical Exam Vital Signs: Temp Pulse Resp BP Pulse Ox 99.6 F 81 16 123/62 97 04/07/17 11:16 04/07/17 11:16 04/07/17 11:16 04/07/17 11:16 04/07/17 11:16 Intake & Output 04/06/17 04/07/17 04/08/17 06:59 06:59 06:59 Intake Total 1104 475 Balance 1104 475 Weight 88 kg Additional comments: This morning, the patient does appear to be significantly improved when compared to last evening. She is lying flat in bed. She is currently on room air with saturations in the high 90s. She is speaking easily in full sentences. Her cognition and mentation are appropriate. Her facial appearance is normal. She does have some mild dental caries on the lower teeth and she is edentulous with her upper teeth. The lungs demonstrate decreased breath sounds throughout particularly in the bases. She has decreased breath sounds in both the right and left bases posteriorly. Today, she does not have any wheezing present. Her cardiac exam is noted to be regular. She is somewhat tachycardic at a rate of 110. She does not have an S3 or S4 present. The abdomen is obese , but soft. Bowel sounds are present. The patient does not have guarding, rebound, hernias or masses. The patient's lower extremities are without any edema. The skin is warm dry and intact without lesions or rashes. Results Laboratory Results: 04/07/17 05:57 04/07/17 05:57 04/06/17 04/06/17 04/07/17 19:21 19:21 05:57 WBC 8.5 RBC 4.35 Hgb 11.3 L Hct 33.2 L MCV 76 L MCH 25.9 L MCHC 33.9 RDW 16.6 H Plt Count 291 Seg Neutrophils % 83.7 H Lymphocytes % 9.5 L Monocytes % 5.5 Eosinophils % 0.9 Basophils % 0.4 Absolute Neutrophils 7.2 Absolute Lymphocytes 0.8 Absolute Monocytes 0.5 Absolute Eosinophils 0.1 Absolute Basophils 0.0 Sodium 140.6 Potassium 4.7 Chloride 108 H Carbon Dioxide 23 Anion Gap 10 BUN 16 Creatinine 0.99 Est GFR ( Amer) > 60 Est GFR (Non-Af Amer) 56 L Glucose 114 H Calcium 8.3 L Phosphorus 3.9 Magnesium 2.1 2.2 Triglycerides 77 Cholesterol 137.08 LDL Cholesterol Direct 84 VLDL Cholesterol 15.0 HDL Cholesterol 30 L TSH Free T4 Free T3 pg/mL 04/07/17 04/07/17 05:57 05:57 WBC 8.4 RBC 4.04 Hgb 10.4 L Hct 30.9 L MCV 76 L MCH 25.7 L MCHC 33.6 RDW 17.1 H Plt Count 264 Seg Neutrophils % Lymphocytes % Monocytes % Eosinophils % Basophils % Absolute Neutrophils Absolute Lymphocytes Absolute Monocytes Absolute Eosinophils Absolute Basophils Sodium Potassium Chloride Carbon Dioxide Anion Gap BUN Creatinine Est GFR ( Amer) Est GFR (Non-Af Amer) Glucose Calcium Phosphorus Magnesium Triglycerides Cholesterol LDL Cholesterol Direct VLDL Cholesterol HDL Cholesterol TSH 1.39 Free T4 1.35 Free T3 pg/mL 3.33 04/06/17 04/06/17 04/07/17 19:21 19:21 01:47 Creatine Kinase 48 49 CK-MB (CK-2) 0.42 Troponin I 0.071 NT-Pro-B Natriuret Pep 04/07/17 04/07/17 04/07/17 01:47 07:20 07:20 Creatine Kinase 41 CK-MB (CK-2) 0.31 0.24 Troponin I 0.052 0.102 NT-Pro-B Natriuret Pep 1190 H Impressions: Chest X-Ray 04/06/17 12:04 IMPRESSION: Left lower lobe pneumonia. Chest/Abdomen CTA 04/06/17 13:26 IMPRESSION: 1. No evidence of PE. 2. Pneumonia or asymmetric pulmonary edema. Assessment & Plan - Diagnosis (1) Acute respiratory failure with hypoxia Is this a current diagnosis for this admission?: Yes Plan: Overnight, the patient has improved significantly and has been weaned to room air. (2) Collapse of left lung Is this a current diagnosis for this admission?: Yes Plan: The collapse of the left lung may be secondary to the pleural effusion. Alternatively, the pleural effusion could be secondary to the collapsed lung. This could be concerning for an endobronchial lesion. Pulmonary consultation is warranted. Respiratory therapy will begin chest percussion. Patient is receiving antibiotics for presumed community-acquired pneumonia. She is also receiving diuretic therapy for pulmonary edema, likely diastolic in nature. (3) Pleural effusion Is this a current diagnosis for this admission?: Yes Plan: The patient likely has a large shunt secondary to the collapsed left lower lobe. Again, she will need pulmonary toilet. Bronchoscopy and thoracentesis may be required. Day, we will continue Lasix and antibiotics. I will order a 2 view chest x-ray to be done tomorrow. Continue chest percussion and physiotherapy (4) Diabetes Qualifiers: Diabetes mellitus type: type 2 Is this a current diagnosis for this admission?: Yes Plan: Continue basal insulin. I did write for a dose slightly lower than her outpatient dose. I will adjust as needed. Continue sliding scale. We will continue to hold metformin at this time. (5) Elevated troponin level Is this a current diagnosis for this admission?: Yes Plan: I agree with assessment per cardiology. This is likely a troponin leak from a primary pulmonary process. Echocardiogram is pending at this time. Cardiology is following. (6) Atrial flutter Qualifiers: Atrial flutter type: typical Qualified Code(s): I48.3 - Typical atrial flutter Is this a current diagnosis for this admission?: Yes Plan: The atrial flutter is likely secondary to the patient's respiratory distress. This improved, the patient has been able to maintain sinus rhythm. I did speak to cardiology last evening and Dr. Jiménez recommended short acting heparin for anticoagulation. Therefore, the patient is on a heparin drip. After I was able to review her home medications she normally takes Toprol XL 100 mg per day. She is currently on metoprolol tartrate 50 mg p.o. twice daily with good effect here. (7) Pneumonia Qualifiers: Pneumonia type: due to unspecified organism Laterality: left Lung location: lower lobe of lung Qualified Code(s): J18.1 - Lobar pneumonia, unspecified organism Is this a current diagnosis for this admission?: Yes Plan: The patient does not give a clinical history compatible with pneumonia, however , her presentation could be atypical secondary to her diabetes. Continue ceftriaxone and azithromycin. - Time Time Spent with patient: 25-34 minutes - Inpatient Certification Medical Necessity: Need Close Monitoring Due to Risk of Patient Decompensation, Need For Continuous Telemetry Monitoring, Need for IV Antibiotics, Risk of Complication if Not Cared For in Hospital
--- NOTE | 2017-04-07 13:02 | EKG REPORT ---
SEVERITY:- ABNORMAL ECG - SINUS RHYTHM FIRST DEGREE AV BLOCK : Confirmed on behalf of: Markus Jiménez 07-Apr-2017 13:01:16
--- NOTE | 2017-04-07 13:17 | XCELERA REPORT ---
[address] [address] Transthoracic Echocardiogram Report Name: ANTHONY MARINA Age: 66 yrs Gender: Female : 1950 Patient Status: Inpatient Patient Location: [address] [place] [address] Study Date: 04/07/2017 11:18 AM Height: 64 in Weight: 186 lb BSA: 1.9 m2 Procedure: A complete two-dimensional transthoracic echocardiogram was performed (2D, M-mode, spectral and color flow Doppler). The study was technically difficult with many images being suboptimal in quality. Reason For Study: chf Ordering Physician: MARKUS DURBIN Performed By: Anne Eden Interpretation Summary The left ventricular ejection fraction is within normal limits. Doppler measurements suggest pseudonormalized left ventricular relaxation, which is associated with grade II/IV or mild to moderate diastolic dysfunction There is mild concentric left ventricular hypertrophy. The left ventricle is grossly normal size. Wall motion cannot be accurately commented on, but no definite regional wall motion abnormalities noted. The right ventricular systolic function is normal. Borderline right ventricular enlargement. The right atrium is normal in size The left atrium is borderline dilated. There is a trace amount of mitral regurgitation There is no aortic valve stenosis No aortic regurgitation is present. There is a trace to mild amount of tricuspid regurgitation There is mild pulmonary hypertension by echo Right ventricular systolic pressure is estimated to be elevated at 30- 40mmHg. The inferior vena cava appeared normal and decreased > 50% with respiration (RAP 5-10 mmHg) Minimal pericardial effusion. MMode/2D Measurements & Calculations RVDd: 2.9 cm LVIDd: 3.7 cm FS: 26.5 % Ao root diam: 2.5 cm IVSd: 1.2 cm LVIDs: 2.7 cm EDV(Teich): 57.3 ml LVPWd: 1.2 cm ESV(Teich): 27.1 ml Ao root area: 4.9 cm2 EF(Teich): 52.7 % Doppler Measurements & Calculations MV E max karo: MV dec slope: Ao V2 max: LV V1 max P.8 cm/sec 158.3 cm/sec 3.7 mmHg MV A max karo: 622.3 cm/sec2 Ao max PG: LV V1 max: 82.0 cm/sec MV dec time: 10.0 mmHg 95.9 cm/sec MV E/A: 1.4 0.18 sec PA V2 max: TR max karo: 89.2 cm/sec 253.4 cm/sec PA max P.2 mmHg TR max P.7 mmHg Left Ventricle The left ventricle is grossly normal size. There is mild concentric left ventricular hypertrophy. The left ventricular ejection fraction is within normal limits. Doppler measurements suggest pseudonormalized left ventricular relaxation, which is associated with grade II/IV or mild to moderate diastolic dysfunction. Wall motion cannot be accurately commented on, but no definite regional wall motion abnormalities noted. Right Ventricle Borderline right ventricular enlargement. There is normal right ventricular wall thickness. The right ventricular systolic function is normal. Atria The right atrium is normal in size. The left atrium is borderline dilated. Interarterial septum not well visualized and not well dopplered. Cannot comment on ASD/PFO presence. Mitral Valve The mitral valve is grossly normal. There is no mitral valve stenosis. There is a trace amount of mitral regurgitation. Aortic Valve The aortic valve is grossly normal. There is no aortic valve stenosis. No aortic regurgitation is present. Tricuspid Valve The tricuspid valve is not well visualized, but is grossly normal. There is no tricuspid stenosis. There is a trace to mild amount of tricuspid regurgitation. There is mild pulmonary hypertension by echo. Right ventricular systolic pressure is estimated to be elevated at 30-40mmHg. Pulmonic Valve The pulmonic valve is not well visualized. Great Vessels The aortic root is not well visualized but is probably normal size. The inferior vena cava appeared normal and decreased > 50% with respiration (RAP 5-10 mmHg). Effusions Minimal pericardial effusion. : MARKUS DURBIN > Markus Durbin
--- NOTE | 2017-04-07 14:20 | CONSULTATION REPORT E ---
Consultation Report NAME: ANTHONY MARINA : 1950 AGE: 66Y DATE: 04/07/2017 308 A TO: CHACE SCHWARTZ M.D. FROM: Requesting Physician HISTORY OF PRESENT ILLNESS: Patient is a 66-year-old -[place] female with past medical history of hypertension, hyperlipidemia, sleep apnea, diabetes, and sarcoidosis. Patient came into emergency room with increasing shortness of breath and coughing yellow-green phlegm and sputum. Claimed that she had been coughing yellow-green sputum for the last 1 week. Denies any fever or chills. No hemoptysis. Pleuritic chest pain over the left side over the last few days. She went to the [facility] Emergency Room on Friday, about 3 days ago, and was sent home treated for pneumonia. Condition worsened yesterday, thus patient went back to the emergency room here and was admitted. Already feeling a lot better. The patient went into atrial flutter/atrial fibrillation on admission and placed on Heparin drip IV. Chest CT scan done yesterday showed no pneumothorax and no pulmonary embolism. Possible pneumonia in left lower lobe with small amount of pleural effusion. PAST MEDICAL HISTORY: Same as above. 1. Hyperlipidemia. 2. Hypertension. 3. Sleep apnea. 4. Sarcoidosis. 5. Diabetes mellitus. SURGICAL HISTORY: 1. Hysterectomy. 2. Tubal ligation. SOCIAL HISTORY: The patient reports with significant other. Never smoked. Denies alcohol abuse or illicit drug use. FAMILY HISTORY: History of diabetes and hypertension and stroke. MEDICATIONS: None. REVIEW OF SYSTEMS: CONSTITUTIONAL: No fever or chills. EYES: No jaundice or pallor. EAR, NOSE, AND THROAT: No ear drainage. No nasal discharge. HEAD AND NECK: No scalp pain or tenderness or swelling. CHEST AND LUNGS: Respiration, no crackles. No fine rales. No wheezing or rhonchi. RESPIRATORY: Complained about increased shortness of breath and coughing yellow-green phlegm and pleuritic chest pain and worsening dyspnea over the last few days. CARDIOVASCULAR: No palpitations and no recent history of AL. Came in with atrial flutter/atrial fibrillation. GASTROINTESTINAL: No nausea, vomiting, or diarrhea. GENITOURINARY: No dysuria, hematuria, or stones. EXTREMITIES: No joint swelling, no cellulitis. PHYSICAL EXAMINATION: GENERAL: The patient is awake, alert, coherent, oriented x3. VITAL SIGNS: Temperature of 99.6 with a T-max of 99.9, blood pressure is 123/62, heart rate of 81, respirations 16, saturation 97% on room air. EYES: No jaundice. No pallor. EARS, NOSE, AND THROAT: No ear drainage. No nasal discharge. HEAD AND NECK: No scalp swelling or tenderness. Neck is supple. CHEST AND LUNGS: No wheezing, no rhonchi, no coarse crackles. CARDIOVASCULAR: S1, S2 distant. Regular rhythm. ABDOMEN: Flabby. Positive bowel sounds. Soft, nondistended, nontender. EXTREMITIES: No joint swelling. No cellulitis. LABORATORY: CBC done today shows white count 8.4, hemoglobin is 10.4, hematocrit is 30.9, platelet count is 264. PT is 15.7 today. INR is 1.17. PTT is 60.3. Currently on Heparin drip. Chemistry done today showed sodium 140, potassium 4.7, chloride is 108, CO2 is 23, BUN is 16, creatinine 0.66, glucose is 114, calcium 8.3. NT-BNP is 1190. CK-MB is 0.24. Troponin is 0.12. Chest CT scan done yesterday on April 06, 2017 at 2 p.m. showed consolidation in the left lower lobe with small amount of pleural effusion. ASSESSMENT: Pneumonia, left lower lobe, appears to be improving. Pleural effusion small amount, most likely parapneumonic. Currently associated with normal white blood cell count and absence of fever and clinically and subjectively feeling better. Currently on IV antibiotics, Zithromax and ceftriaxone. PLAN/RECOMMENDATIONS: 1. Continue IV antibiotics. 2. Patient does not need bronchoscopy at this time but will require pulmonary clinic followup definitely in 1-2 weeks following hospital discharge. 3. We will collect sputum culture for bacteria, fungus, AFB. 4. We will follow patient. DICTATING PHYSICIAN: CHACE SCHWARTZ MD,ANDREI,MPH [id number] PHY#: [id number] ID: [id number] JOB#: [id number] ACCT: [id number] cc:CHACE SCHWARTZ M.D. > [facility]
[2017-04-07] MEDS: ACETAMINOPHEN 325 MG TABLET PO PRN ×2 (17:48→21:34)
[2017-04-07] MEDS: CEFTRIAXONE 1 GM/D5W RTU 1 GM/50 ML RTUPB IV SCH (17:49)
[2017-04-07] MEDS: INSULIN DETEMIR 100 UNIT/ML 3 ML PEN SUBCUT SCH (20:49)
[2017-04-07] MEDS: OXYCODONE HCL IR 5 MG TABLET PO PRN (20:51)
[2017-04-07] MEDS: TRAZODONE HCL 50 MG TABLET PO SCH (20:51)
[2017-04-07] MEDS: ATORVASTATIN CALCIUM 20 MG TABLET PO SCH (20:53)
--- NOTE | 2017-04-07 21:43 | PDOC PROGRESS REPORT ---
Subjective Progress Note for:: 04/07/17 Subjective:: Better, Patient seems to be doing better with gradual improvement. Pt is denying any chest arm or neck discomfort. Patient denying any PND, orthopnea. Patient denied any sustained palpitations, dizziness, syncope, near syncope. Patient denying any fever chills. Patient denying any other significant discomfort. Patient is maintaining sinus rhythm. Review of systems: Rest review of systems negative. Medications: Medications have been reviewed. Physical Exam Vital Signs: Temp Pulse Resp BP Pulse Ox 98.3 F 92 16 139/71 H 97 04/07/17 16:32 04/07/17 16:32 04/07/17 16:32 04/07/17 16:32 04/07/17 16:32 Intake & Output 04/06/17 04/07/17 04/08/17 06:59 06:59 06:59 Intake Total 1104 1594 Balance 1104 1594 Weight 88 kg Exam: GENERAL: well-nourished and in no acute distress. Alert and oriented x3 HEAD: Atraumatic, normocephalic. EYES: Pupils equal round and reactive to light, extraocular movements intact, sclera anicteric, conjunctiva are normal. ENT: TMs normal, nares patent, oropharynx clear without exudates. Moist mucous membranes. No oral ulcerations or bleeding gums noted NECK: supple without lymphadenopathy. Trachea is central. No cervical or axillary lymphadenopathy noted. Carotids are 2+, JVD WNL LUNGS: Respiration seems nonlabored, no significant accessory muscle action noted. Diminished breath sounds noted left base with some bronchial breathing. Dullness noted both bases left more than right. CHEST: Palpation of the chest wall shows no significant chest wall tenderness. No other significant abnormalities noted. 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 ABDOMEN: Soft, no significant tenderness appreciated, normoactive bowel sounds. No guarding, no rebound. No rigidity noted . No masses appreciated. EXTREMITIES: Pedal pulses are 1-2+, no calf tenderness noted. No clubbing or cyanosis.trace to 1+ pedal edema noted NEUROLOGICAL: Focused neurological exam showed no significant neurologic deficit. Normal speech, no focal weakness appreciated. PSYCH: Normal mood, normal affect. Judgment and insight within normal limits. SKIN: No significant ecchymosis, rash, ulcerations or signs of pruritus noted. MUSCULOSKELETAL EXAM: No significant joint swelling noted. Results Laboratory Results: 04/07/17 05:57 04/07/17 05:57 04/07/17 04/07/17 04/07/17 05:57 05:57 05:57 WBC 8.4 RBC 4.04 Hgb 10.4 L Hct 30.9 L MCV 76 L MCH 25.7 L MCHC 33.6 RDW 17.1 H Plt Count 264 Sodium 140.6 Potassium 4.7 Chloride 108 H Carbon Dioxide 23 Anion Gap 10 BUN 16 Creatinine 0.99 Est GFR ( Amer) > 60 Est GFR (Non-Af Amer) 56 L Glucose 114 H Calcium 8.3 L Phosphorus 3.9 Magnesium 2.2 Triglycerides 77 Cholesterol 137.08 LDL Cholesterol Direct 84 VLDL Cholesterol 15.0 HDL Cholesterol 30 L TSH 1.39 Free T4 1.35 Free T3 pg/mL 3.33 04/06/17 04/06/17 04/07/17 19:21 19:21 01:47 Creatine Kinase 48 49 CK-MB (CK-2) 0.42 Troponin I 0.071 NT-Pro-B Natriuret Pep 04/07/17 04/07/17 04/07/17 01:47 07:20 07:20 Creatine Kinase 41 CK-MB (CK-2) 0.31 0.24 Troponin I 0.052 0.102 NT-Pro-B Natriuret Pep 1190 H EKG Comments: Telemetry strips shows sinus rhythm. No sustained tachycardia or bradycardia arrhythmias noted. Impressions: Chest X-Ray 04/06/17 12:04 IMPRESSION: Left lower lobe pneumonia. Chest/Abdomen CTA 04/06/17 13:26 IMPRESSION: 1. No evidence of PE. 2. Pneumonia or asymmetric pulmonary edema. Assessment & Plan - Diagnosis (1) Elevated troponin level Is this a current diagnosis for this admission?: Yes (2) Congestive heart failure (CHF) Qualifiers: Congestive heart failure type: unspecified congestive heart failure type Congestive heart failure chronicity: acute on chronic Qualified Code(s): I50.9 - Heart failure, unspecified Is this a current diagnosis for this admission?: Yes (3) Acute respiratory failure with hypoxia Is this a current diagnosis for this admission?: Yes (4) Atrial flutter Qualifiers: Atrial flutter type: typical Qualified Code(s): I48.3 - Typical atrial flutter Is this a current diagnosis for this admission?: Yes (5) Collapse of left lung Is this a current diagnosis for this admission?: Yes (6) Diabetes Qualifiers: Diabetes mellitus type: type 2 Is this a current diagnosis for this admission?: Yes (7) Hypoxemia Is this a current diagnosis for this admission?: Yes (8) Pleural effusion Is this a current diagnosis for this admission?: Yes (9) Pleuritic chest pain Is this a current diagnosis for this admission?: Yes - Notes Notes: Patient claims to be feeling generally better. Today she is maintaining sinus rhythm. Patient also maintaining good oxygen's saturation. Continue with oxygen supplementation. As regards atrial flutter, patient today noted to be in sinus rhythm. Will repeat an EKG tomorrow. Pulmonary pathology being evaluated by tool room attendant. We will leave further decision to the tool room attendant and loop drier operator. As regards CHF, this is secondary to diastolic dysfunction. Recommend diuretic therapy. Pleural effusion: Possibly partly related to CHF. Recommend repeating the CT chest and or x-ray PA lateral. Troponin I elevation is not significant. At this point, no ischemia workup is planned unless patient starts to develop chest pain. Will continue to follow patient. 2D echo report dictated. - Time Time with patient: 15-25 minutes - CODE STATUS was discussed, patient remains full code. Surrogate decision-maker unchanged patient's son. Approximately 25 minutes spent coordinating care, discussing management plans with involved caregivers. Management plans discussed with involved personnels. Medical decision making was of moderate to high complexity, patient's has multiple comorbidities. Medications reviewed and adjusted accordingly: Yes
[2017-04-07] MEDS ORDERED: HYDRALAZINE HCL INJ/PF 20 MG/1 ML SDV IV PRN (21:46)
[2017-04-07] MEDS ORDERED: DIAZEPAM INJ 10 MG/2 ML DISP.SYRIN ONE (21:57)
[2017-04-07] MEDS ORDERED: DIAZEPAM INJ 10 MG/2 ML DISP.SYRIN IV ONE (22:15)
[2017-04-07 23:08] LABS: CREATINE KINASE MB 1.1 ng/mL (<4.55)
[2017-04-07 23:25] LABS: TROPONIN I 0.245 ng/mL
[2017-04-07] MEDS ORDERED: METOPROLOL TARTRATE PF/INJ 5 MG/5 ML SDV IV ONE ×2 (23:44→23:45)
[2017-04-08] MEDS: OXYCODONE HCL IR 5 MG TABLET PO PRN (02:50)
[2017-04-08 04:52] LABS: HEMOGLOBIN 12.1 g/dL (12.0-15.5); HGB HCT DIFFERENCE 0.3; MEAN CORPUSCULAR HEMOGLOBIN 25.6 pg (27.0-33.4); MEAN CORPUSCULAR HGB CONC 33.5 g/dL (32.0-36.0); MEAN CORPUSCULAR VOLUME 76 fl (80-97); RED BLOOD COUNT 4.72 10^6/uL (3.72-5.28); RED CELL DISTRIBUTION WIDTH 17.3 % (11.5-14.0); WHITE BLOOD COUNT 4.9 10^3/uL (4.0-10.5)
[2017-04-08 05:07] LABS: ANION GAP 11 (5-19); BLOOD UREA NITROGEN 18 mg/dL (7-20); CALCIUM 8.6 mg/dL (8.4-10.2); CARBON DIOXIDE 22 mmol/L (22-30); CHLORIDE 107 mmol/L (98-107); CREATINE KINASE 103 U/L (30-135); CREATININE RESULT 0.91 mg/dL (0.52-1.25); GLUCOSE 140 mg/dL (75-110); POTASSIUM 4.3 mmol/L (3.6-5.0); SODIUM 140.4 mmol/L (137-145)
[2017-04-08 05:19] LABS: CREATINE KINASE MB 1.17 ng/mL (<4.55); TROPONIN I 0.144 ng/mL
[2017-04-08] MEDS: IPRATROPIUM/ALBUTEROL 0.5-2.5 MG/3 ML AMPUL NEB SCH (08:08)
--- NOTE | 2017-04-08 08:21 | RADIOLOGY REPORT (SQ) ---
EXAM DESCRIPTION: CHEST PA/LAT COMPLETED DATE/TIME: 04/08/2017 8:00 am REASON FOR STUDY: Pneumonia COMPARISON: 04/06/2017 EXAM PARAMETERS: NUMBER OF VIEWS: two views TECHNIQUE: Digital Frontal and Lateral radiographic views of the chest acquired. RADIATION DOSE: NA LIMITATIONS: none FINDINGS: LUNGS AND PLEURA: Again there is a consolidative process in the left lower hemithorax whic h appears essentially unchanged as compared to the previous study. Again the appearance is consisten t with pneumonia/atelectasis with an associated left pleural effusion the right lung remains clear. MEDIASTINUM AND HILAR STRUCTURES: No masses or contour abnormalities. HEART AND VASCULAR STRUCTURES: Cardiac silhouette is partially obscured but appears unchanged. BONES: No acute findings. HARDWARE: None in the chest. OTHER: No other significant finding. IMPRESSION: No significant interval change. The previously described consolidative process in the l eft lower hemithorax appears essentially unchanged. Other findings as noted above TECHNICAL DOCUMENTATION: JOB ID: [id number] [employer]- All Rights Reserved
[2017-04-08] MEDS: DOCUSATE SODIUM 100 MG CAPSULE PO SCH (09:35)
[2017-04-08] MEDS: ASPIRIN 325 MG TABLET, ENT COATED PO SCH (09:35)
[2017-04-08] MEDS: FUROSEMIDE INJ/PF 40 MG/4 ML SDV IV SCH (09:35)
[2017-04-08] MEDS: FAMOTIDINE 20 MG TABLET PO SCH (09:36)
[2017-04-08] MEDS: AZITHROMYCIN 500 MG in DEXTROSE 5%-WATER 250 ML IV SCH (09:36)
[2017-04-08] MEDS: METOPROLOL TARTRATE 50 MG TABLET PO SCH (09:36)
--- NOTE | 2017-04-08 09:43 | EKG REPORT ---
SEVERITY:- ABNORMAL ECG - A-FLUTTER W/ PREDOM 4:1 AV BLOCK, A-RATE [address] DEPRESSION : Confirmed by: Markus Jiménez 08-Apr-2017 09:42:51
--- NOTE | 2017-04-08 09:51 | PDOC PROGRESS REPORT ---
Subjective Progress Note for:: 04/08/17 Subjective:: Better, Patient seems to be doing better with gradual improvement. Pt is denying any chest arm or neck discomfort. Patient denying any PND, orthopnea. Patient denied any sustained palpitations, dizziness, syncope, near syncope. Patient denying any fever chills. Patient denying any other significant discomfort. Patient in atrial flutter on EKG. Review of systems: Rest review of systems negative. Medications: Medications have been reviewed. Physical Exam Vital Signs: Temp Pulse Resp BP Pulse Ox 98.3 F 85 18 136/72 H 94 04/08/17 06:42 04/08/17 08:08 04/08/17 08:08 04/08/17 06:42 04/08/17 08:08 Intake & Output 04/07/17 04/08/17 04/09/17 06:59 06:59 06:59 Intake Total 1104 3074 Balance 1104 3074 Weight 88 kg 87 kg Exam: GENERAL: well-nourished and in no acute distress. Alert and oriented x3 HEAD: Atraumatic, normocephalic. EYES: Pupils equal round and reactive to light, extraocular movements intact, sclera anicteric, conjunctiva are normal. ENT: TMs normal, nares patent, oropharynx clear without exudates. Moist mucous membranes. No oral ulcerations or bleeding gums noted NECK: supple without lymphadenopathy. Trachea is central. No cervical or axillary lymphadenopathy noted. Carotids are 2+, JVD WNL LUNGS: Respiration seems nonlabored, no significant accessory muscle action noted. Diminished breath sounds noted left base with some bronchial breathing. Dullness noted both bases left more than right. Findings seems better than yesterday. CHEST: Palpation of the chest wall shows no significant chest wall tenderness. No other significant abnormalities noted. HEART: [place] TECHNICAL BUSINESS SYSTEMS ANALYST, No PSH, 1/6 DIYA aortic area, 1/6 hameed systolic murmur mitral area, no rubs, no gallops. ABDOMEN: Soft, no significant tenderness appreciated, normoactive bowel sounds. No guarding, no rebound. No rigidity noted . No masses appreciated. EXTREMITIES: Pedal pulses are 1-2+, no calf tenderness noted. No clubbing or cyanosis.trace + pedal edema noted NEUROLOGICAL: Focused neurological exam showed no significant neurologic deficit. Normal speech, no focal weakness appreciated. PSYCH: Normal mood, normal affect. Judgment and insight within normal limits. SKIN: No significant ecchymosis, rash, ulcerations or signs of pruritus noted. MUSCULOSKELETAL EXAM: No significant joint swelling noted. Results Laboratory Results: 04/08/17 04:02 04/08/17 04:02 04/08/17 04/08/17 04:02 04:02 WBC 4.9 RBC 4.72 Hgb 12.1 Hct 36.0 MCV 76 L MCH 25.6 L MCHC 33.5 RDW 17.3 H Plt Count 296 Sodium 140.4 Potassium 4.3 Chloride 107 Carbon Dioxide 22 Anion Gap 11 BUN 18 Creatinine 0.91 Est GFR ( Amer) > 60 Est GFR (Non-Af Amer) > 60 Glucose 140 H Calcium 8.6 04/06/17 04/06/17 04/07/17 19:21 19:21 01:47 Creatine Kinase 48 49 CK-MB (CK-2) 0.42 Troponin I 0.071 NT-Pro-B Natriuret Pep 04/07/17 04/07/17 04/07/17 01:47 07:20 07:20 Creatine Kinase 41 CK-MB (CK-2) 0.31 0.24 Troponin I 0.052 0.102 NT-Pro-B Natriuret Pep 1190 H 04/07/17 04/07/17 04/08/17 22:15 22:15 04:02 Creatine Kinase 70 103 CK-MB (CK-2) 1.10 Troponin I 0.245 NT-Pro-B Natriuret Pep 04/08/17 04:02 Creatine Kinase CK-MB (CK-2) 1.17 Troponin I 0.144 NT-Pro-B Natriuret Pep EKG Comments: EKG shows A. Flutter Impressions: Chest/Abdomen CTA 04/06/17 13:26 IMPRESSION: 1. No evidence of PE. 2. Pneumonia or asymmetric pulmonary edema. Chest X-Ray 04/08/17 08:00 IMPRESSION: No significant interval change. The previously described consolidative process in the left lower hemithorax appears essentially unchanged. Other findings as noted above Assessment & Plan - Diagnosis (1) Elevated troponin level Is this a current diagnosis for this admission?: Yes (2) Congestive heart failure (CHF) Qualifiers: Congestive heart failure type: unspecified congestive heart failure type Congestive heart failure chronicity: acute on chronic Qualified Code(s): I50.9 - Heart failure, unspecified Is this a current diagnosis for this admission?: Yes (3) Acute respiratory failure with hypoxia Is this a current diagnosis for this admission?: Yes (4) Atrial flutter Qualifiers: Atrial flutter type: typical Qualified Code(s): I48.3 - Typical atrial flutter Is this a current diagnosis for this admission?: Yes (5) Collapse of left lung Is this a current diagnosis for this admission?: Yes (6) Diabetes Qualifiers: Diabetes mellitus type: type 2 Is this a current diagnosis for this admission?: Yes (7) Hypoxemia Is this a current diagnosis for this admission?: Yes (8) Pleural effusion Is this a current diagnosis for this admission?: Yes (9) Pleuritic chest pain Is this a current diagnosis for this admission?: Yes - Notes Notes: Patient claims to be feeling generally better. She is expected to be discharged. Patient also maintaining good oxygen's saturation. Continue with oxygen supplementation. As regards atrial flutter, patient today noted to be in atrial flutter fibrillation but with controlled ventricular response. Pulmonary pathology being evaluated by wash oil pump operator helper. We will leave further decision to the wash oil pump operator helper and auditor internal. As regards CHF, this is secondary to diastolic dysfunction. Recommend continuing diuretic therapy. Pleural effusion: Possibly partly related to CHF. Recommend repeating the CT chest and or x-ray PA lateral. Troponin I elevation is not significant. At this point, no ischemia workup is planned unless patient starts to develop chest pain. Patient advised to follow-up with me and her primary teacher. 2D echo report reviewed.. - Time Time with patient: 15-25 minutes - Contnue same. Rec chronic anticoagulation when feasible More than 50% of the time spent coordinating care, discussing management plans with involved caregivers. Management plans discussed with involved personnels. Medical decision making was of moderate to high complexity , patient's has multiple comorbidities. Medications reviewed and adjusted accordingly: Yes
[2017-04-08] MEDS ORDERED: LACTOBACILLUS ACIDOPHILUS 250 MG TAB PO SCH (10:00)
[2017-04-08 11:14] VITALS: BP 126/77
--- NOTE | 2017-04-08 11:49 | PDOC DISCHARGE SUMMARY ---
General - Admit/Disc Date/PCP Admission Date/Primary Care Provider: 04/06/17 15:54 BRIAN HOLCOMB MD Discharge Date: 04/08/17 - Discharge Diagnosis (1) Pneumonia Is this a current diagnosis for this admission?: Yes Summary: Admitted for SOB. Found to have LLL collapse secondary to PNA/atelectasis. Started on IV antibiotics for CAP. Marked improvement in respiratory status on day of discharge. Received script for PO antibiotics to complete for 5 additional days (7 day course). Follow up with PCP for post hospitalization visit. (2) NSTEMI (non-ST elevated myocardial infarction) Is this a current diagnosis for this admission?: Yes Summary: Noted to have elevated troponins. Downtrending on day of discharge. Was started on Heparin GTT. Troponin leak secondary to infection. No evidence of ischemia on admission EKG. Cardiology was consulted during admission. (3) Atrial flutter Is this a current diagnosis for this admission?: Yes Summary: Noted on EKG. Continue beta-agustín. Adequate HR at discharge. Advised to continue BB and ASA 81mg at home. Can follow up with PCP. Consider oral hygienist anticoagulation given stroke risk. (4) Congestive heart failure (CHF) Is this a current diagnosis for this admission?: Yes Summary: Volume overload on admission. Received Lasix. Euvolemic on exam at discharge. - Additional Information Resuscitation Status: Full Code Discharge Diet: Cardiac Discharge Activity: Activity As Tolerated, Balance Activity w/Rest Home Medications: Glimepiride [Amaryl 4 mg Tablet] 8 mg PO DAILY 04/06/17 Insulin Detemir [Levemir Flextouch] 100 unit SQ DAILY 04/06/17 Losartan/Hydrochlorothiazide [Losartan-Hctz 100-25 mg Tab] 1 each PO DAILY 04/06 Metformin HCl [Metformin HCl ER] 500 mg PO BID 04/06/17 Metoprolol Succinate [Toprol XL 100 mg Tablet] 100 mg PO DAILY 04/06/17 Rosuvastatin Calcium [Crestor 20 mg Tablet] 20 mg PO DAILY 04/06/17 Amoxicillin 875 mg PO BID 5 Days #10 tablet 04/08/17 Aspirin [Aspirin 81 mg Chewable Tablet] 81 mg PO DAILY #1 pkg 04/08/17 Azithromycin 500 mg PO DAILY 5 Days #5 tablet 04/08/17 History of Present Illness History of Present Illness: See hospital course below. Hospital Course Hospital Course: Torri Pak is a 66-year-old female who was admitted for shortness of breath and a paroxysmal cough since 04/04/17. Her symptoms progressed and she went to the hospital in [facility] on Friday. She was diagnosed with pneumonia and sent home on azithromycin. The patient continued to get worse. She came to [facility] ED and was found to be hypoxic. She was in atrial flutter intermittently with sinus tachycardia. X-rays demonstrate partial left lower lobe collapse with an associated pleural effusion. She was started on IV antibiotics for CAP with improvement in her respiratory status. Noted to have elevated in troponin without EKG changes. Started on Heparin GTT. Troponins were downtrending on day of discharge. She will be sent home with PO antibiotics to complete an additional 5 day therapy for 7 day course. Plan discuss with patient and her son who at bedside. Physical Exam Vital Signs: Temp Pulse Resp BP Pulse Ox 98.3 F 85 18 126/77 H 94 04/08/17 11:10 04/08/17 11:10 04/08/17 11:10 04/08/17 11:10 04/08/17 11:10 Intake & Output 04/07/17 04/08/17 04/09/17 06:59 06:59 06:59 Intake Total 1104 3074 Balance 1104 3074 Weight 88 kg 87 kg General appearance: PRESENT: no acute distress, well-developed, well-nourished Head exam: PRESENT: atraumatic, normocephalic Eye exam: PRESENT: conjunctiva pink, EOMI, PERRLA. ABSENT: scleral icterus Ear exam: PRESENT: normal external ear exam Mouth exam: PRESENT: moist, tongue midline Neck exam: ABSENT: carotid bruit, JVD, lymphadenopathy, thyromegaly Respiratory exam: PRESENT: decreased breath sounds - L>R, unlabored. ABSENT: rales, rhonchi, wheezes Cardiovascular exam: PRESENT: other - Irregularly regular. ABSENT: diastolic murmur, rubs, systolic murmur Pulses: PRESENT: normal dorsalis pedis pul Vascular exam: PRESENT: normal capillary refill GI/Abdominal exam: PRESENT: normal bowel sounds, soft. ABSENT: distended, guarding, mass, organolmegaly, rebound, tenderness Rectal exam: PRESENT: deferred Extremities exam: PRESENT: full ROM. ABSENT: calf tenderness, clubbing, pedal edema Neurological exam: PRESENT: alert, awake, oriented to person, oriented to place , oriented to time, oriented to situation, CN II-XII grossly intact. ABSENT: motor sensory deficit Psychiatric exam: PRESENT: appropriate affect, normal mood. ABSENT: homicidal ideation, suicidal ideation Skin exam: PRESENT: dry, intact, warm. ABSENT: cyanosis, rash Results Laboratory Results: 04/08/17 04:02 04/08/17 04:02 04/08/17 04/08/17 04:02 04:02 WBC 4.9 RBC 4.72 Hgb 12.1 Hct 36.0 MCV 76 L MCH 25.6 L MCHC 33.5 RDW 17.3 H Plt Count 296 Sodium 140.4 Potassium 4.3 Chloride 107 Carbon Dioxide 22 Anion Gap 11 BUN 18 Creatinine 0.91 Est GFR ( Amer) > 60 Est GFR (Non-Af Amer) > 60 Glucose 140 H Calcium 8.6 04/06/17 04/06/17 04/07/17 19:21 19:21 01:47 Creatine Kinase 48 49 CK-MB (CK-2) 0.42 Troponin I 0.071 NT-Pro-B Natriuret Pep 04/07/17 04/07/17 04/07/17 01:47 07:20 07:20 Creatine Kinase 41 CK-MB (CK-2) 0.31 0.24 Troponin I 0.052 0.102 NT-Pro-B Natriuret Pep 1190 H 04/07/17 04/07/17 04/08/17 22:15 22:15 04:02 Creatine Kinase 70 103 CK-MB (CK-2) 1.10 Troponin I 0.245 NT-Pro-B Natriuret Pep 04/08/17 04:02 Creatine Kinase CK-MB (CK-2) 1.17 Troponin I 0.144 NT-Pro-B Natriuret Pep EKG Comments: Flutter on admission EKG Impressions: Chest/Abdomen CTA 04/06/17 13:26 IMPRESSION: 1. No evidence of PE. 2. Pneumonia or asymmetric pulmonary edema. Chest X-Ray 04/08/17 08:00 IMPRESSION: No significant interval change. The previously described consolidative process in the left lower hemithorax appears essentially unchanged. Other findings as noted above Qualifiers PATEINT BEING DISCHARGED WITH ANY OF THE FOLLOWING DIAGNOSIS?: No
== END 2017-04-08 11:49 | disposition home or self-care (01) | DRG 193 ==
LOC: EDBD → ER 11:38 → EH 15:54 → UNDOADMIN 17:19 → 3N 18:55
PROVIDERS: ADMIT Internal Medicine Pulmonary Disease; ATTEND Internal Medicine Pulmonary Disease
DX: J18.1 Lobar pneumonia, unspecified organism (principal); J96.01 Acute respiratory failure with hypoxia; I21.4 Non-ST elevation (NSTEMI) myocardial infarction; I48.3 Typical atrial flutter; J90 Pleural effusion, not elsewhere classified; J98.19 Other pulmonary collapse; D86.9 Sarcoidosis, unspecified; I50.9 Heart failure, unspecified; I11.0 Hypertensive heart disease with heart failure; R79.89 Other specified abnormal findings of blood chemistry; E11.9 Type 2 diabetes mellitus without complications; Z79.84 Long term (current) use of oral hypoglycemic drugs; Z79.4 Long term (current) use of insulin; Z79.899 Other long term (current) drug therapy
CPT/HCPCS: 36415; 71010; 71020; 71275; 80048; 80053; 80061; 82550; 82553; 82803; 82962; 83605; 83735; 83880; 84100; 84439; 84443; 84481; 84484; 85025; 85027; 85610; 85730; 87040; 93005; 93010; 93306; 94640; 94667; 94668; 96361; 96374; 96375; 99285; J0456; J0696; J1644; J1815; J1885; J1940; J3360; J3490; J7030; J7060; J7620